=== PATIENT | female | born 1985 | race Caucasian/White ===

== ENCOUNTER → 2017-07-22 | Outpatient (CLI) | payer BC ==
[~2017-07-22] MED LIST: PRENTAB26 PO; RANI150T3 PO
[2017-07-22 12:36] LABS: CHOLESTEROL/HDL RATIO 3.7
== END ==
LOC: C.LABBFT 10:25
PROVIDERS: ATTEND Nurse Practitioner
DX: Z13.1 Encounter for screening for diabetes mellitus (principal); Z13.6 Encounter for screening for cardiovascular disorders